=== PATIENT | male | born 1960 | race African-American/Black ===

== ENCOUNTER 2023-09-14 12:05 | Emergency (ER) | payer MEDICAID, OTHER ==
[~2023-09-14] VITALS: Ht 193 cm; Wt 93.0 kg
[2023-09-14 12:44] VITALS: O2SAT 99
[2023-09-14 13:18] LABS: BASOPHILS % 1.2 % (0.0-2.0); EOSINOPHILS % 2.9 % (0.0-5.0); HEMATOCRIT. 43.5 % (42.0-52.0); HEMOGLOBIN. 14.8 g/dL (14.0-18.0); LYMPHOCYTES % 39.8 % (20.0-50.0); MEAN CORPUSCULAR HGB CONC 34.1 g/dL (31.0-37.0); MEAN CORPUSCULAR VOLUME 96.8 fL (80.0-94.0); MEAN PLATELET VOLUME 7.3 fl (7.4-10.4); MONOCYTES % 8.6 % (2.0-8.0); NEUTROPHILS % 47.5 % (40.0-76.0); PLATELET 207 x1000/uL (130-400); RED CELL DISTRIBUTION WIDTH 14.4 % (11.6-14.6); WHITE BLOOD COUNT 6.4 x1000/uL (4.5-11.0)
[2023-09-14 13:23] LABS: CHLORIDE 108 mEq/L (98-107); POTASSIUM 4.2 mEq/L (3.5-5.1); SODIUM 140 mEq/L (136-145)
[2023-09-14 13:24] LABS: CALCIUM 9.6 mg/dL (8.7-10.4); CARBON DIOXIDE 27 mEq/L (21-32)
[2023-09-14 13:29] LABS: CREATININE 1.2 mg/dL (0.6-1.3); GLUCOSE 87 mg/dL (70-105); UREA NITROGEN BLOOD 9 mg/dL (9-23)
[2023-09-14 13:30] LABS: TROPONIN I HIGH SENSITIVITY 7 ng/L (3.0-53)
[2023-09-14] MEDS ORDERED: METH-653 MT (13:56)
[2023-09-14] MEDS ORDERED: ACET-2708 MT (13:56)
[2023-09-14 14:00] VITALS: BP 144/68; PULSE 62; RESP 18; TEMP 98.1
== END 2023-09-14 14:20 | disposition home or self-care (01) ==
LOC: ER 13:19
DX: R07.89 Other chest pain (principal)
CPT/HCPCS: 36415; 71045; 80048; 84484; 85025; 93005; 99285